=== PATIENT | male | born 1985 | race Caucasian/White ===

== ENCOUNTER → 2020-08-04 | Outpatient (CLI) | payer OTHER ==
[~2020-08-04] MED LIST: ACEBUTCAFT PO; ALBU90OI; ALPR1 PO; HYDACE5 PO; IBUP800 PO; LORA1 PO; VERA120ERB
== END | disposition home or self-care (01) ==
LOC: LAB EV 14:24 → LAB SHORT 14:24
DX: J06.9 Acute upper respiratory infection, unspecified (principal); Z20.828 Contact with and (suspected) exposure to other viral communicable diseases
CPT/HCPCS: U0003

== ENCOUNTER 2023-09-17 16:08 | Emergency (ER) | payer OTHER ==
[~2023-09-17] VITALS: Ht 180.3 cm; Wt 141.5 kg
[2023-09-17 16:09] VITALS: BP 172/99
[2023-09-17] MEDS ORDERED: NORVASC5 MG PO (16:15)
[2023-09-17] MEDS ORDERED: Lisinopril2.5 MG PO (16:15)
[2023-09-17] MEDS ORDERED: BUPR100 PO (16:16)
[2023-09-17] MEDS ORDERED: HYDCHL25 PO (16:16)
== END 2023-09-17 18:21 | disposition home or self-care (01) ==
LOC: ER 16:08
DX: S62.334A Displaced fracture of neck of fourth metacarpal bone, right hand, initial encounter for closed fracture (principal); W23.0XXA Caught, crushed, jammed, or pinched between moving objects, initial encounter; J45.909 Unspecified asthma, uncomplicated; Z91.018 Allergy to other foods; Z79.899 Other long term (current) drug therapy
CPT/HCPCS: 29125; 73130; 99283-25